=== PATIENT | female | born 1980 | race Caucasian/White ===

== ENCOUNTER 2018-12-07 13:13 | Emergency (ER) | payer OTHER ==
[~2018-12-07] VITALS: Ht 160 cm; Wt 76.7 kg
[2018-12-07 13:22] VITALS: Ht 160 cm; Wt 76.7 kg
[2018-12-07 15:32] VITALS: BP 121/61
== END 2018-12-07 15:32 | disposition home or self-care (01) ==
LOC: ED 13:13
DX: R10.84 Generalized abdominal pain (principal); K59.00 Constipation, unspecified; Z98.51 Tubal ligation status

== ENCOUNTER 2019-10-27 12:08 | Emergency (ER) | payer OTHER ==
[~2019-10-27] VITALS: Ht 157.5 cm; Wt 81.6 kg
[2019-10-27 12:17] VITALS: Ht 157.5 cm; Wt 81.6 kg
[2019-10-27 13:13] LABS: BASOPHIL % 0.4 % (0-2); PLATELET COUNT 303 x10^3mcL (130-400); RED CELL DISTRIBUTION WIDTH 14.2 % (11.5-14.5)
[2019-10-27 13:53] LABS: CALCIUM 8.7 mg/dL (8.5-10.1); CARBON DIOXIDE 26.1 mmol/L (21-32); CHLORIDE SERUM 104 mmol/L (98-107); CREATININE SERUM 0.7 mg/dL (0.6-1.0); GFR1 > 60 mL/min; GLUCOSE SERUM 102 mg/dL (74-106); POTASSIUM SERUM 4.1 mmol/L (3.5-5.1); SODIUM SERUM 138 mmol/L (136-145)
[2019-10-27 13:58] LABS: ALBUMIN 3.6 g/dL (3.4-5.0); ALKALINE PHOSPHATASE 52 U/L (46-116); ALT/SGPT 35 U/L (14-59); AST/SGOT 18 U/L (15-37); BILIRUBIN TOTAL 0.3 mg/dL (0.20-1.00)
[2019-10-27 15:44] LABS: TOTAL PROTEIN, SERUM 7.6 g/dL (6.4-8.2)
[2019-10-27 16:26] VITALS: BP 123/70
== END 2019-10-27 16:26 | disposition home or self-care (01) ==
LOC: ED 12:08
PROVIDERS: Emergency Medicine
DX: N94.10 Unspecified dyspareunia (principal); Z98.890 Other specified postprocedural states
CPT/HCPCS: 36415; 87491; 87591; J1885; Q0092